=== PATIENT | female | born 1965 | race African-American/Black ===

== ENCOUNTER 2024-10-12 07:10 | Emergency (ER) | payer OTHER ==
[~2024-10-12] VITALS: Ht 177.8 cm; Wt 75.9 kg
[2024-10-12] MEDS: KETOROLAC TROMETH 60MG/2ML VIAL IM ONE (08:13)
--- NOTE | 2024-10-12 08:14 | ED.PDOC ---
Musculoskeletal HPI Comments 59-year-old female patient presents to the clinic for left wrist pain. Patient reports that she was walking dog this morning, when she slipped on the turf and fell landing on the left hand and wrist. Patient has moderate swelling to the radial portion of the wrist. Patient denies taking any medications for pain this morning. Patient has ice pack in place. Patient has decreased range of motion to the wrist due to pain. Cap refill less than 3 seconds. Inflammation and deformity noted to the left wrist. Chief Complaint: Upper Extremity Time Seen by MD: 07:32 Primary Care Provider: RICARDO Reviewed Notes: Nurses Notes, Medications Allergies: Coded Allergies: Tetracycline (Verified Allergy, Unknown, 10/12/24) Home Meds Active Scripts Hydrocodone-Acetaminophen (Hydrocodone Bitartrate/AC 5-325 mg) 1 Tab Tab, 1 TAB PO Q6HPRN PRN for 3 Days, #12 TAB 0 Refills Prov:OLGA LIDIA SHAW [facility] 10/12/24 Ondansetron Odt 4MG Tab (ZOFRAN PO) 4 Mg Tb, 4 MG PO Q8HP PRN for 7 Days, #21 TAB ODT TAB-DISSOLVE IN MOUTH, THEN SWALLOW Prov:OLGA LIDIA SHAW [facility] 10/12/24 Ibuprofen Micronized (Ibuprofen) 600 Mg Tab, 600 MG PO Q6HPRN PRN for 30 Days, #120 TAB 0 Refills Prov:OLGA LIDIA SHAW [facility] 10/12/24 Information Source: Patient Mode of Arrival: Ambulatory Past Medical History PAST MEDICAL HISTORY: Denies Surgical History: Denies all surgeries 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 History Family History Family History: Reviewed,noncontributory to illness Constitutional: denies: chills, diaphoresis, fatigue, fever, malaise, sweats, weakness, others EENTM: denies: blurred vision, double vision, ear bleeding, ear discharge, ear drainage, ear pain, ear ringing, eye pain, eye redness, hearing loss, mouth pain, mouth swelling, nasal discharge, nose bleeding, nose congestion, nose pain, photophobia, tearing, throat pain, throat swelling, voice changes, others Respiratory: denies: cough, hemoptysis, orthopnea, SOB at rest, shortness of breath, SOB with excertion, stridor, wheezing, others Cardiovascular: denies: chest pain, dizzy spells, diaphoresis, Dyspnea on exertion, edema, irregular heart beat, left arm pain, lightheadedness, palpitations, PND, syncope, others Gastrointestinal: denies: abdomen distended, abdominal pain, blood streaked bowels, constipated, diarrhea, dysphagia, difficulty swallowing, hematemesis, melena, nausea, poor appetite, poor fluid intake, rectal bleeding, rectal pain, vomiting, others Genitourinary: denies: abnormal vagina bleeding, burning, dyspareunia, dysuria, flank pain, frequency, hematuria, incontinence, pain, , vagina discharge, urgency, others Neurological: denies: dizziness, fainting, headache, left sided numbness, left sided weakness, numbness, paresthesia, pre-existing deficit, right sided numbness, right sided weakness, seizure, speech problems, tingling, tremors, weakness, others Musculoskeletal: reports: joint swelling (Left wrist) Integumetry: denies: bruises, change in color, change in hair/nails, dryness, laceration, lesions, lumps, rash, wounds, others Allergic/Immunocompromised: denies: Difficulty Healing, Frequent Infections, Hives, Itching, others Hematologic/Lymphatic: denies: anemia, blood clots, easy bleeding, easy bruising, swollen glands, others Endocrine: denies: excessive hunger, excessive sweating, excessive thirst, excessive urination, flushing, intolerance to cold, intolerance to heat, unexplained weight gain, unexplained weight loss, others Psychiatric: denies: anxiety, bipolar disorder, depression, hopeless, panic disorder, schizophrenia, sleepless, suicidal, others All Other Systems: Reviewed and Negative Physical Exam General Appearance: No Apparent Distress, Normal HEENT: Normal ENT Inspection, Pharynx Normal, TMs Normal Neck: Full Range of Motion, Non-Tender, Normal, Normal Inspection Respiratory: Chest Non-Tender, Lungs Clear, No Accessory Muscle Use, No Respiratory Distress, Normal Breath Sounds Cardiovascular: No Edema, No JVD, No Murmur, No Gallop, Normal Peripheral Pulses, Regular Rate/Rhythm Breast Exam: Deferred Gastrointestinal: No Organomegaly, Non Tender, No Pulsatile Mass, Normal Bowel Sounds, Soft Genitalia: Deferred Pelvic: Deferred Rectal: Deferred Extremities: No calf tenderness, Normal capillary refill, Normal inspection, Normal range of motion, Non-tender, No pedal edema Musculoskeletal : Location: Left Extremity Location: Wrist (Swelling to the left wrist near the thumb. Cap refill less than 3 seconds) Apperance: Normal, Deformity (Left wrist), Tenderness: Moderate (left wrist) Neurologic: Alert, refrigerator assembler II-XII nml as Tested, No Motor Deficits, Normal Affect, Normal Mood, No Sensory Deficits Cerebellar Function: Normal Reflexes: Normal Skin: Dry, Normal Color, Warm Lymphatic: No Adenopathy Was a procedure done? Was a procedure done?: Yes Sedation Sedation?: No Informed consent obtained: Yes Reduction Indication: Fracture Sedation: Radial, Ulnar Intra-articular anesthetic shantelle: No Post-reduction x-ray show: Acceptable Alignment Informed consent obtained: Yes Risks/benefits/alt described: Yes Differential Diagnosis EXT Differential Diagnosis: Fracture, Sprain, Contusion, Strain, Arthritis X-Ray, Labs, Meds, VS Vital Signs Date Time Temp Pulse Resp B/P (MAP) Pulse Ox O2 Delivery O2 Flow Rate FiO2 10/12/24 10:41 120 18 123/66 10/12/24 10:11 88 16 142/95 10/12/24 08:45 99.0 88 16 165/90 (115) 100 99.0 10/12/24 08:45 88 16 100 Room Air 10/12/24 07:20 99.3 85 16 177/90 (119) 100 Current Medications Medications (Trade) Dose Ordered Sig/Daysi Route Start Time Stop Time Status Last Admin Ketorolac Tromethamine (Toradol Injection) 60 mg ONCE ONCE IM 10/12/24 08:00 10/12/24 08:01 DC 10/12/24 08:13 Hydromorphone HCl (Dilaudid Injection) 1 mg ONCE ONCE IM 10/12/24 09:45 10/12/24 09:46 DC 10/12/24 10:11 Ondansetron HCl (Zofran Po) 4 mg ONCE ONCE PO 10/12/24 09:45 10/12/24 09:46 DC 10/12/24 09:45 PATIENT: GRIS ACOSTAACCT: [id number]: [id number] : 1965 LOC: ER ROOM / BED: / AGE / SEX: 59 / F ADM STATUS: REG ER SERVICE 0737 ORDERING PHYSICIAN: OLGA LIDIA SHAW PROCEDURE(s): LWRI - L WRIST 3+ VIEW XRAY REASON: R/O FX FALL ORDER NUMBER(s): [id number], ACCESSION NUMBER(s): [id number] CLINICAL INDICATION: R/O FX FALL TECHNIQUE: XY L WRIST 3+ VIEW XRAY Comparison: None FINDINGS/IMPRESSION: Comminuted and displaced d distal radial and ulnar styloid process fractures. ATED BY: PAL SPICER MD DICTATED DATE/TIME: 10/12/24817 SIGNED BY: PAL SPICER MD SIGNED DATE/TIME: 10/12/24817 CC: X-Ray, Labs, Meds, VS Comment Pt left the clinic with splint in place. Pt advised to elevate the wrist as much as possible. Patient advised to take pain medication as prescribed. Patient advised to follow up with ortho tomorrow morning regarding splint and reduction. On re-evaluation patient has symptomatic improvement. Patient is stable for discharge at this time. All test results and diagnostic imaging have been interpreted. All diagnostic findings, discharge care, and education instruction provided to the patient. Follow-up with PCP in 2-3 days Patient verbalized understanding, discharge instructions and agrees to treatment plan Vital signs are stable Patient is ambulatory Patient advised of which symptoms necessitate a return visit to the emergency room. Patient to return emergency room for any new worsening symptoms. Patient is aware that the purpose of this visit is for an acute medical emergency requiring emergent stabilization. Chronic conditions, including malignancies have not been ruled out. Patient is instructed to follow up with PCP as directed for continued care and workup. If unable to arrange follow up, patient is to return to the emergency room for reassessment. Patient was given verbal and written discharge instructions and acknowledges understanding Time of 1ST Reevaluation: 08:13 Reevaluation 1ST: Improved Patient Education/Counseling: Diagnosis, Treatment, Prognosis Family Education/Counseling: Diagnosis, Treatment, Prognosis Departure 1 Departure Time of Disposition: 11:47 Impression: Primary Impression: Left ulnar fracture Qualified Codes: S52.692A - Other fracture of lower end of left ulna, initial encounter for closed fracture Additional Impressions: Left radial fracture Qualified Codes: S52.592A - Other fractures of lower end of left radius, initial encounter for closed fracture Reduced fracture of shafts of both ulna and radius Disposition: 01 HOME / SELF CARE / HOMELESS Condition: Fair e-Prescriptions Hydrocodone-Acetaminophen (Hydrocodone Bitartrate/AC 5-325 mg) 1 Tab Tab 1 TAB PO Q6HPRN PRN for 3 Days, #12 TAB 0 Refills Prov: OLGA LIDIA SHAW [facility] 10/12/24 Ondansetron Odt 4MG Tab (ZOFRAN PO) 4 Mg Tb 4 MG PO Q8HP PRN for 7 Days, #21 TAB ODT TAB-DISSOLVE IN MOUTH, THEN SWALLOW Prov: OLGA LIDIA SHAW [facility] 10/12/24 Ibuprofen Micronized (Ibuprofen) 600 Mg Tab 600 MG PO Q6HPRN PRN for 30 Days, #120 TAB 0 Refills Prov: OLGA LIDIA SHAW [facility] 10/12/24 Discharged With: Self, Relative Critical Care Note Critical Care Time?: No Stability Stability form required: No Heart Score Heart Score: Heart Score Response (Comments) Value History N/A 0 EKG N/A 0 Age N/A 0 Risk Factors N/A 0 Troponin N/A 0 Total 0 OLGA LIDIA SHAW [facility] Oct 12, 2024 08:14
--- NOTE | 2024-10-12 08:20 | DVH ---
CLINICAL INDICATION: R/O FX FALL TECHNIQUE: XY L WRIST 3+ VIEW XRAY Comparison: None FINDINGS/IMPRESSION: Comminuted and displaced d distal radial and ulnar styloid process fractures.
[2024-10-12 08:45] VITALS: TEMP 99; O2SAT 100
[2024-10-12] MEDS: ONDANSETRON ODT 4 MG TAB PO ONE (09:45)
[2024-10-12] MEDS: HYDROmorphone HCL 2 MG/ML VL/or syr IM ONE (10:11)
[2024-10-12 10:41] VITALS: BP 123/66; PULSE 120; RESP 18
--- NOTE | 2024-10-12 11:23 | DVH ---
INDICATION: reduction TECHNIQUE: 4 radiographic views of the left wrist were obtained. COMPARISON: XY L WRIST 3+ VIEW XRAY on DOS: 10/12/24 FINDINGS: Status post reduction of distal radius . Improve anatomic aligment. IMPRESSION: Status post reduction of distal radius . Improve anatomic aligment.
[2024-10-12] MEDS ORDERED: HYDR-4902 PO (11:30)
[2024-10-12] MEDS ORDERED: ZOFR4T PO (11:30)
[2024-10-12] MEDS ORDERED: IBUP1TAB5 PO (11:30)
== END 2024-10-12 12:00 | disposition home or self-care (01) ==
LOC: ER 07:10
DX: S52.592A Other fractures of lower end of left radius, initial encounter for closed fracture (principal); S52.692A Other fracture of lower end of left ulna, initial encounter for closed fracture; Z88.8 Allergy status to other drugs, medicaments and biological substances; Z79.899 Other long term (current) drug therapy; W18.39XA Other fall on same level, initial encounter; Y93.89 Activity, other specified; Y92.89 Other specified places as the place of occurrence of the external cause; Y99.8 Other external cause status
CPT/HCPCS: 25605; 73110; 96372; 99284; J1171; J1885; Q0162

== ENCOUNTER 2024-11-01 10:25 | Inpatient (IN) | payer OTHER ==
[~2024-11-01] VITALS: Ht 177.8 cm; Wt 81.0 kg
[~2024-11-01 10:25] MED LIST: HYDR-4902 PO; IBUP1TAB5 PO
[2024-11-01 11:54] LABS: Eosinophils # (auto) 0 10 ^3/uL (0-0.8); Eosinophils % (auto) 0.7 % (0.0-7.0); Lymphocytes # (auto) 1.3 10 ^3/uL (0.4-5.4); Monocytes # (auto) 0.4 10 ^3/uL (0-1.3)
[2024-11-01 11:56] LABS: Basophils # (auto) 0 10 ^3/uL (0-0.2); Basophils % (auto) 0.7 % (0.0-2.0); Hematocrit 36.4 % (36.0-46.0); Hemoglobin 11.6 g/dL (12.2-16.2); Lymphocytes % (auto) 22.4 % (10.0-50.0); Mean Corpuscular Hemoglobin 20.5 pg (28.0-32.0); Mean Corpuscular Hgb Conc. 31.8 g/dL (32.0-36.0); Mean Corpuscular Volume 64.5 fL (80.0-100.0); Monocytes % (auto) 6.2 % (0.0-12.0); Neutrophils # (auto) 4.1 10 ^3/uL (1.6-8.6); Nucleated Red Blood Cells % 0.1 %; Platelet Count (auto) 252 10^3/uL (140-450); Red Blood Cells 5.65 10^6/uL (4.0-5.20); Red Cell Distribution Width 16.8 % (11.8-14.3); White Blood Cell 5.8 10^3/uL (4.4-10.8)
--- NOTE | 2024-11-01 11:58 | ED.PDOC ---
Musculoskeletal HPI Comments 59 year old female presents to the ED with chief complaint of pre-op clearance for wrist fracture. Patient reports that she had fractured her left wrist in two different places, following up with orthopedist Dr. King for treatment. Patient relays that she was advised to come into the ED for pre-op and to be admitted for surgery that is to take place tomorrow. Patient denies any symptoms at this time. Chief Complaint: Upper Extremity Time Seen by MD: 11:54 Primary Care Provider: RICARDO [place] Notes: Nurses Notes, Medications, Allergies Allergies: Coded Allergies: Tetracycline (Verified Allergy, Unknown, 10/12/24) Home Meds Active Scripts Hydrocodone-Acetaminophen (Hydrocodone Bitartrate/AC 5-325 mg) 1 Tab Tab, 1 TAB PO Q6HPRN PRN for 3 Days, #12 TAB 0 Refills Prov:OLGA LIDIA SHAW [facility] 10/12/24 Ibuprofen Micronized (Ibuprofen) 600 Mg Tab, 600 MG PO Q6HPRN PRN for 30 Days, #120 TAB 0 Refills Prov:COLINOLGA LIDIA [facility] 10/12/24 Information Source: Patient Mode of Arrival: Ambulatory Location: Left Extremity Location: Wrist Timing: Days Prehospital treatment: None Severity: Moderate Able to Move Extremity: Yes Bear Weight: Fully Pain: Mild Past Medical History PAST MEDICAL HISTORY: HTN Surgical History: Denies all surgeries 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 Family History Family History: Reviewed,noncontributory to illness Social History Smoker: Non-Smoker Alcohol: Denies ETOH Use Drugs: Denies Drug Use Lives In: Home Constitutional: denies: chills, diaphoresis, fatigue, fever, malaise, sweats, weakness, others EENTM: denies: blurred vision, double vision, ear bleeding, ear discharge, ear drainage, ear pain, ear ringing, eye pain, eye redness, hearing loss, mouth pain, mouth swelling, nasal discharge, nose bleeding, nose congestion, nose pain, photophobia, tearing, throat pain, throat swelling, voice changes, others Respiratory: denies: cough, hemoptysis, orthopnea, SOB at rest, shortness of breath, SOB with excertion, stridor, wheezing, others Cardiovascular: denies: chest pain, dizzy spells, diaphoresis, Dyspnea on exertion, edema, irregular heart beat, left arm pain, lightheadedness, palpitations, PND, syncope, others Gastrointestinal: denies: abdomen distended, abdominal pain, blood streaked bowels, constipated, diarrhea, dysphagia, difficulty swallowing, hematemesis, melena, nausea, poor appetite, poor fluid intake, rectal bleeding, rectal pain, vomiting, others Genitourinary: denies: abnormal vagina bleeding, burning, dyspareunia, dysuria, flank pain, frequency, hematuria, incontinence, pain, , vagina discharge, urgency, others Neurological: denies: dizziness, fainting, headache, left sided numbness, left sided weakness, numbness, paresthesia, pre-existing deficit, right sided numbness, right sided weakness, seizure, speech problems, tingling, tremors, weakness, others Musculoskeletal: reports: others (Left wrist fracture); denies: back pain, gout, joint pain, joint swelling, muscle pain, muscle stiffness, neck pain Integumetry: denies: bruises, change in color, change in hair/nails, dryness, laceration, lesions, lumps, rash, wounds, others Allergic/Immunocompromised: denies: Difficulty Healing, Frequent Infections, Hives, Itching, others Hematologic/Lymphatic: denies: anemia, blood clots, easy bleeding, easy bruising, swollen glands, others Endocrine: denies: excessive hunger, excessive sweating, excessive thirst, excessive urination, flushing, intolerance to cold, intolerance to heat, unexplained weight gain, unexplained weight loss, others Psychiatric: denies: anxiety, bipolar disorder, depression, hopeless, panic disorder, schizophrenia, sleepless, suicidal, others All Other Systems: Reviewed and Negative Physical Exam General Appearance: No Apparent Distress HEENT: Normal ENT Inspection Neck: Full Range of Motion, Normal Inspection Respiratory: Lungs Clear, No Accessory Muscle Use, No Respiratory Distress, Normal Breath Sounds Cardiovascular: No JVD, Regular Rate/Rhythm Breast Exam: Deferred Gastrointestinal: Non Tender, Soft Genitalia: Deferred Pelvic: Deferred Rectal: Deferred Extremities: No pedal edema, Other (Left upper extremity short orthopedic splint in place. Left upper extremity appears neurovascularly intact.) Neurologic: Alert, Normal Affect, Normal Mood, Other (Ambulatory without difficulty. No gross focal deficit.) Cerebellar Function: NOT DONE Reflexes: NOT DONE Skin: Dry, Normal Color, Warm Lymphatic: NOT DONE Was a procedure done? Was a procedure done?: No Differential Diagnosis EXT Differential Diagnosis: Fracture Other Differential Diagnosis Electrolyte imbalance, cardiac disease, renal disease, among others X-Ray, Labs, Meds, VS Vital Signs Date Time Temp Pulse Resp B/P (MAP) Pulse Ox O2 Delivery O2 Flow Rate FiO2 11/01/24 13:52 98.1 78 16 154/84 (107) 100 98.1 11/01/24 13:52 85 16 100 Room Air* 0 21 11/01/24 10:52 97.5 91 16 138/80 (99) 99 Lab Test 11/01/24 11:40 11/01/24 11:11 Range/Units White Blood Count 5.8 4.4-10.8 10^3/uL Red Blood Count 5.65 H 4.0-5.20 10^6/uL Hemoglobin 11.6 L 12.2-16.2 g/dL Hematocrit 36.4 36.0-46.0 % Mean Corpuscular Volume 64.5 L 80.0-100.0 fL Mean Corpuscular Hemoglobin 20.5 L 28.0-32.0 pg Mean Corpuscular Hemoglobin Concent 31.8 L 32.0-36.0 g/dL Red Cell Distribution Width 16.8 H 11.8-14.3 % Platelet Count 252 140-450 10^3/uL Mean Platelet Volume 8.4 6.9-10.8 fL Neutrophils (%) (Auto) 70.0 37.0-80.0 % Lymphocytes (%) (Auto) 22.4 10.0-50.0 % Monocytes (%) (Auto) 6.2 0.0-12.0 % Eosinophils (%) (Auto) 0.7 0.0-7.0 % Basophils (%) (Auto) 0.7 0.0-2.0 % Neutrophils # (Auto) 4.1 1.6-8.6 10 ^3/uL Lymphocytes # (Auto) 1.3 0.4-5.4 10 ^3/uL Monocytes # (Auto) 0.4 0-1.3 10 ^3/uL Eosinophils # (Auto) 0 0-0.8 10 ^3/uL Basophils # (Auto) 0 0-0.2 10 ^3/uL Nucleated Red Blood Cells 0.1 % Platelet Estimate Adequate Hypochromasia (manual) Moderate Anisocytosis (manual) Slight Microcytosis Slight Schistocytes Few Prothrombin Time 11.1 9.3-11.8 sec Prothrombin Time INR 1.05 0.9-1.15 Activated Partial Thromboplast Time 28.8 24.5-34.5 SEC Sodium Level 141 136-145 mmol/L Potassium Level 3.4 L 3.5-5.1 mmol/L Chloride Level 106 98-107 mmol/L Carbon Dioxide Level 31 20-31 mmol/L Anion Gap 4 L 5-15 Blood Urea Nitrogen 5 L 9-23 mg/dL Creatinine 0.68 0.550-1.02 mg/dL Glomerular Filtration Rate Calc 99 >90 mL/min BUN/Creatinine Ratio 7.4 L 10.0-20.0 Serum Glucose 89 74-106 mg/dL Calcium Level 10.4 8.7-10.4 mg/dL Total Bilirubin 1.1 H 0.2-1.0 mg/dL Aspartate Amino Transferase (AST) 19 13-40 U/L Alanine Aminotransferase (ALT) 15 7-40 U/L Alkaline Phosphatase 89 46-116 U/L Total Protein 7.6 5.7-8.2 g/dL Albumin 4.5 3.2-4.8 g/dL Urine Color Light-yellow Yellow Urine Clarity Clear Clear Urine pH 6.0 5.0-9.0 Urine Specific [place] 1.003 1.001-1.035 Urine Protein Negative Negative Urine Ketones Negative Negative Urine Blood Negative Negative /uL Urine Nitrite Negative Negative Urine Bilirubin Negative Negative Urine Urobilinogen Normal Negative mg/dL Urine Leukocyte Esterase Negative Negative /uL Urine RBC <1 0 - 4 /hpf Urine WBC 1 0 - 5 /hpf Urine Squamous Epithelial Cells Few <5 /hpf Urine Bacteria None seen None Seen /hpf Urine Glucose Normal Normal mg/dL Current Medications Medications (Trade) Dose Ordered Sig/Daysi Route Start Time Stop Time Status Last Admin Potassium Chloride (Klor-Con Tablet) 40 meq ONCE ONCE PO 11/01/24 13:00 11/01/24 13:32 DC 11/01/24 13:57 Chest XR: FINDINGS: Lines and Tubes: None Lungs: No focal consolidation. Pleura: No effusion. No pneumothorax. Cardiomediastinal contours: Cardiac silhouette near upper limit of normal in size. Bones: No acute osseous abnormality. IMPRESSION: 1. No radiographic evidence of acute cardiopulmonary disease. X-Ray, Labs, Meds, VS Comment 59-year-old female with a history of hypertension presenting for preop clearance for orthopedic surgery to repair left upper extremity fractures Vitals unremarkable Exam remarkable for left upper extremity short Velcro splint in place. Left upper extremity appears neurovascularly intact. Rhythm strip independently interpreted by me: Sinus rhythm, rate 91, no ectopy. Chest x-ray unremarkable CBC unremarkable, CMP remarkable for potassium 3.4, coag panel and UA unremarkable Patient treated with the following in the ED: KCl 40 mEq p.o. Patient resting comfortably on re-evaluation. Plan is to admit the patient for ongoing preop clearance for surgery tomorrow. Images Reviewed?: Images reviewed and evaluated by me Time of 1ST Reevaluation: 12:54 Reevaluation 1ST: Unchanged Patient Education/Counseling: Diagnosis, Treatment Family Education/Counseling: No Family Present Departure 1 Departure Time of Disposition: 14:58 Impression: Primary Impression: Preoperative clearance Disposition: ADMITTED INPATIENT Admit to: Med Surg Condition: Stable Critical Care Note Critical Care Time?: No Stability Stability form required: No Heart Score Heart Score: Heart Score Response (Comments) Value History N/A 0 EKG N/A 0 Age N/A 0 Risk Factors N/A 0 Troponin N/A 0 Total 0 I personally scribed for LOURDES JEWELL MD ([email or web address]) on 11/01/24 at 11:58. Electronically submitted by Sidney Wilson ([email or web address]). I personally scribed for LOURDES JEWELL MD ([email or web address]) on 11/01/24 at 12:43. Electronically submitted by Sidney Wilson ([email or web address]). LOURDES JEWELL MD Nov 01, 2024 11:58
--- NOTE | 2024-11-01 12:07 | DVH ---
CHEST RADIOGRAPH Indication: pre-op Technique: Single frontal view of the chest was obtained Comparison: None FINDINGS: Lines and Tubes: None Lungs: No focal consolidation. Pleura: No effusion. No pneumothorax. Cardiomediastinal contours: Cardiac silhouette near upper limit of normal in size. Bones: No acute osseous abnormality. IMPRESSION: 1. No radiographic evidence of acute cardiopulmonary disease. HS:Y
[2024-11-01 12:12] LABS: INR 1.05 (0.9-1.15); Partial Thromboplastin Time 28.8 SEC (24.5-34.5); Prothrombin Time 11.1 sec (9.3-11.8)
[2024-11-01 12:13] LABS: Alanine Aminotransferase 15 U/L (7-40); Albumin 4.5 g/dL (3.2-4.8); Alkaline Phosphatase 89 U/L (46-116); Anion Gap 4 (5-15); Aspartate Aminotransferase 19 U/L (13-40); BUN/Creatinine Ratio 7.4 (10.0-20.0); Blood Urea Nitrogen 5 mg/dL (9-23); Calcium 10.4 mg/dL (8.7-10.4); Carbon Dioxide 31 mmol/L (20-31); Chloride 106 mmol/L (98-107); Glucose 89 mg/dL (74-106); Potassium 3.4 mmol/L (3.5-5.1); Sodium 141 mmol/L (136-145)
[2024-11-01 12:14] LABS: Bilirubin, Total 1.1 mg/dL (0.2-1.0); Total Protein 7.6 g/dL (5.7-8.2)
[2024-11-01 12:19] LABS: Urine Bacteria None Seen /hpf (None Seen)
[2024-11-01 12:22] LABS: Anisocytosis Slight; Hypochromia Moderate; Platelet Estimate Adequate
[2024-11-01 12:30] LABS: Urine Blood Negative /uL (Negative); Urine Clarity Clear (Clear); Urine Color Light-Yellow (Yellow); Urine Protein, UAD Negative (Negative); Urine Specific Gravity 1.003 (1.001-1.035); Urine Urobilinogen Normal (Negative); Urine WBC 1 /hpf (0 - 5)
[2024-11-01 13:52] VITALS: PULSE 85; RESP 16; O2SAT 100
[2024-11-01] MEDS: POTASSIUM CHL 20 Meq TABLET PO ONE (13:57)
--- NOTE | 2024-11-01 14:56 | DVHHP2 ---
History of Present Illness Reason for Visit: fracture History of Present Illness 59-year-old with a past medical history of hypertension comes to the ED for evaluation of pain in the wrist patient had a fall with a wrist fracture and was evaluated by Orthopedics outpatient patient was recommended for inpatient evaluation management and care in order to have surgical correction done in the morning patient was evaluated in the ED had basic labs for preop evaluation patient will be admitted for further evaluation and management and preop orthopedic repair Cardiovascular: HTN Review of Systems Constitutional: No: Fever, Chills, Sweats, Weakness, Malaise, Other Eyes: No: Pain, Vision change, Conjunctivae inflammation, Eyelid inflammation, Other, Redness ENT: No: Ear pain, Ear discharge, Nose pain, Nose discharge, Nose congestion, Mouth pain, Mouth swelling, Throat pain, Throat swelling, Other Respiratory: No: Cough, Dry, Shortness of breath, SOB with excertion, Wheezing, Hemoptysis, Pleuritic Pain, Sputum, Wheezing, Other Cardiovascular: No: Chest Pain, Palpitations, Orthopnea, Paroxysmal Noc. Dyspnea, Edema, Lt Headedness, Other Gastrointestinal: No: Nausea, Vomiting, Abdominal Pain, Diarrhea, Constipation, Melena, Hematochezia, Other Genitourinary: No Dysuria, No Frequency, No Incontinence, No Hematuria, No Retention, No Other Musculoskeletal: arm pain; No: other, neck pain, shoulder pain, back pain, hand pain, leg pain, foot pain Skin: No: Rash, Lesions, Jaundice, Bruising, Other Neurological: No: Weakness, Numbness, Incoordination, Change in speech, Confusion, Seizures, Other Allergies: Coded Allergies: Tetracycline (Verified Allergy, Unknown, 10/12/24) Exam Vital Signs Vital Signs Date Time Temp Pulse Resp B/P (MAP) Pulse Ox O2 Delivery O2 Flow Rate FiO2 11/01/24 13:52 98.1 78 16 154/84 (107) 100 98.1 11/01/24 13:52 Room Air* 0 21 General Appearance: Alert, Oriented X3, Cooperative, moderate distress HEENT: Atraumatic, PERRLA, EOMI Respiratory: Clear to auscultation, Normal air movement Cardiovascular: Regular rate, Normal S1, Normal S2 Abdominal: Normal bowel sounds, Soft, No tenderness Extremities: No clubbing, No cyanosis, No edema Skin: No rashes, No breakdown Neuro: Normal gait, Normal speech Psych/Mental Status: Mood NL Labs/Xrays Labs Test 11/01/24 11:40 11/01/24 11:11 Range/Units White Blood Count 5.8 4.4-10.8 10^3/uL Red Blood Count 5.65 H 4.0-5.20 10^6/uL Hemoglobin 11.6 L 12.2-16.2 g/dL Hematocrit 36.4 36.0-46.0 % Mean Corpuscular Volume 64.5 L 80.0-100.0 fL Mean Corpuscular Hemoglobin 20.5 L 28.0-32.0 pg Mean Corpuscular Hemoglobin Concent 31.8 L 32.0-36.0 g/dL Red Cell Distribution Width 16.8 H 11.8-14.3 % Platelet Count 252 140-450 10^3/uL Mean Platelet Volume 8.4 6.9-10.8 fL Neutrophils (%) (Auto) 70.0 37.0-80.0 % Lymphocytes (%) (Auto) 22.4 10.0-50.0 % Monocytes (%) (Auto) 6.2 0.0-12.0 % Eosinophils (%) (Auto) 0.7 0.0-7.0 % Basophils (%) (Auto) 0.7 0.0-2.0 % Neutrophils # (Auto) 4.1 1.6-8.6 10 ^3/uL Lymphocytes # (Auto) 1.3 0.4-5.4 10 ^3/uL Monocytes # (Auto) 0.4 0-1.3 10 ^3/uL Eosinophils # (Auto) 0 0-0.8 10 ^3/uL Basophils # (Auto) 0 0-0.2 10 ^3/uL Nucleated Red Blood Cells 0.1 % Platelet Estimate Adequate Hypochromasia (manual) Moderate Anisocytosis (manual) Slight Microcytosis Slight Schistocytes Few Prothrombin Time 11.1 9.3-11.8 sec Prothrombin Time INR 1.05 0.9-1.15 Activated Partial Thromboplast Time 28.8 24.5-34.5 SEC Sodium Level 141 136-145 mmol/L Potassium Level 3.4 L 3.5-5.1 mmol/L Chloride Level 106 98-107 mmol/L Carbon Dioxide Level 31 20-31 mmol/L Anion Gap 4 L 5-15 Blood Urea Nitrogen 5 L 9-23 mg/dL Creatinine 0.68 0.550-1.02 mg/dL Glomerular Filtration Rate Calc 99 >90 mL/min BUN/Creatinine Ratio 7.4 L 10.0-20.0 Serum Glucose 89 74-106 mg/dL Calcium Level 10.4 8.7-10.4 mg/dL Total Bilirubin 1.1 H 0.2-1.0 mg/dL Aspartate Amino Transferase (AST) 19 13-40 U/L Alanine Aminotransferase (ALT) 15 7-40 U/L Alkaline Phosphatase 89 46-116 U/L Total Protein 7.6 5.7-8.2 g/dL Albumin 4.5 3.2-4.8 g/dL Urine Color Light-yellow Yellow Urine Clarity Clear Clear Urine pH 6.0 5.0-9.0 Urine Specific [place] 1.003 1.001-1.035 Urine Protein Negative Negative Urine Ketones Negative Negative Urine Blood Negative Negative /uL Urine Nitrite Negative Negative Urine Bilirubin Negative Negative Urine Urobilinogen Normal Negative mg/dL Urine Leukocyte Esterase Negative Negative /uL Urine RBC <1 0 - 4 /hpf Urine WBC 1 0 - 5 /hpf Urine Squamous Epithelial Cells Few <5 /hpf Urine Bacteria None seen None Seen /hpf Urine Glucose Normal Normal mg/dL Assessment/Plan Assessment/Plan Admit to [facility] Wrist fracture Plan for inpatient preop clearance Plan for patient to have orthopedic repair with Dr. Bo PLamarrLamarnLamar management for pain as needed IV hydration NPO after midnight Repeat a.m. labs for preop procedure Cardio consulted in the ED for preop cardiac clearance History of hypertension we will continue with patient's home medications Plan discussed with: Patient Problem List: (1) Left ulnar fracture (2) Left radial fracture (3) Reduced fracture of shafts of both ulna and radius Date of Service: Nov 01, 2024 Billing Provider: CELIO RAMESH MD Common Visit Codes: [id number] INP/OBS CARE (HIGH) CELIO RAMESH MD Nov 01, 2024 14:56
[2024-11-01] MEDS ORDERED: LORazepam 0.5 MG TAB PO PRN (15:00)
[2024-11-01] MEDS ORDERED: MORPHINE SULFATE INJ 2 MG/ml SYRG IV PRN (15:00)
[2024-11-01] MEDS ORDERED: MAALOX PLUS or MAALOX 30 ML PO PRN (15:00)
[2024-11-01] MEDS ORDERED: DOCUSATE SOD 100 MG CAP PO PRN (15:00)
[2024-11-01] MEDS ORDERED: TEMAZEPAM 15 MG CAP PO PRN (15:00)
[2024-11-01] MEDS: SODIUM CHLORIDE 0.9% 1,000 ML IV SCH (18:01)
[2024-11-01 18:03] VITALS: PULSE 79; RESP 16; O2SAT 99
[2024-11-01 20:30] VITALS: BP 143/70; PULSE 72; RESP 20; TEMP 98.2; O2SAT 98
[2024-11-02] VITALS (8 sets, daily range): BP systolic 138–165; BP diastolic 60–93; PULSE 68–110; RESP 14–20; TEMP 97.3–98.2; O2SAT 98–100
[2024-11-02 05:20] LABS: Basophils # (auto) 0 10 ^3/uL (0-0.2); Basophils % (auto) 0.7 % (0.0-2.0); Eosinophils # (auto) 0.1 10 ^3/uL (0-0.8); Eosinophils % (auto) 2.8 % (0.0-7.0); Hematocrit 35.9 % (36.0-46.0); Hemoglobin 11.5 g/dL (12.2-16.2); Lymphocytes # (auto) 2.2 10 ^3/uL (0.4-5.4); Lymphocytes % (auto) 43.7 % (10.0-50.0); Mean Corpuscular Hemoglobin 20.5 pg (28.0-32.0); Mean Corpuscular Hgb Conc. 32.1 g/dL (32.0-36.0); Mean Corpuscular Volume 63.9 fL (80.0-100.0); Monocytes # (auto) 0.4 10 ^3/uL (0-1.3); Monocytes % (auto) 7.9 % (0.0-12.0); Neutrophils # (auto) 2.2 10 ^3/uL (1.6-8.6); Neutrophils % (auto) 44.9 % (37.0-80.0); Nucleated Red Blood Cells % 0.1 %; Platelet Count (auto) 222 10^3/uL (140-450); Red Blood Cells 5.62 10^6/uL (4.0-5.20); Red Cell Distribution Width 17.5 % (11.8-14.3); White Blood Cell 4.9 10^3/uL (4.4-10.8)
[2024-11-02 05:30] LABS: Anion Gap 6 (5-15); Carbon Dioxide 28 mmol/L (20-31); Potassium 3.8 mmol/L (3.5-5.1); Sodium 142 mmol/L (136-145)
[2024-11-02 05:31] LABS: Calcium 10.1 mg/dL (8.7-10.4)
[2024-11-02 05:36] LABS: BUN/Creatinine Ratio 10.8 (10.0-20.0); Glucose 91 mg/dL (74-106)
[2024-11-02 05:49] LABS: Blood Urea Nitrogen 7 mg/dL (9-23); Chloride 108 mmol/L (98-107)
[2024-11-02] MEDS: LIDOCAINE 1%-Mpf/Epinephrine 1:200,000 30ml VIAL ONE (07:48)
[2024-11-02] MEDS ORDERED: MIDAZOLAM HCL 2MG/2ML 2ml VIAL (1mg/ml) ONE (08:00)
[2024-11-02] MEDS ORDERED: MEPERIDINE HCL (50 MG/ML) 1 ML VIAL ONE (08:00)
[2024-11-02] MEDS ORDERED: fentaNYL CITRATE 100 MCG/2 ML VL ONE (08:00)
[2024-11-02] MEDS: ceFAZolin 2 GM/D5W100ml 100 ML IV ONE (08:37)
--- NOTE | 2024-11-02 08:41 | DVHHP2 ---
History Allergies: Coded Allergies: Tetracycline (Verified Allergy, Unknown, 10/12/24) Chief Complaint: ^!F, left wrist pain, deformity s/p mechanical fall roughly 3 wks ago, pit not recall exact date, mechanism , trip over dog, pulled by dog, no LOC, no hit head, no AMS splinted pending surgery, very active patient Present Illness(Onset/Duration Left distal radius fracture, 3 wks ago, in active 59F Past Surgical History none declared Medications none Physical Exam Skin intact Chest and Lungs CTA B Heart RRR neg MRG Abdomen NBS, ND NT Extremities left wrist, skin intact, NVI, moderatre swelling, ROM not assesed due to fracture Vital Signs Vital Signs Date Time Temp Pulse Resp B/P (MAP) Pulse Ox O2 Delivery O2 Flow Rate FiO2 11/02/24 07:57 98.2 84 20 165/88 (113) 98 98.2 11/01/24 18:03 Room Air* 0 21 Impressions/Description Left distal radius fracture Plan clearance by anesthsiolgy after EKG surgery, ORIF left distal radius fracture MARRY HINES MD Nov 02, 2024 08:41
[2024-11-02] MEDS ORDERED: PROPOFOL 10 MG/ML 20 ML IV ONE (09:10)
[2024-11-02] MEDS ORDERED: ONDANSETRON HCL 4 MG/2 ML VIAL ONE (09:11)
--- NOTE | 2024-11-02 10:04 | DVHOP2 ---
Operative Report - 2 Report Details Date: 11/02/24 Preop Diagnosis: left distal radius fracture Postop Diagnosis: same Surgeon: Armond Hines MD Claims Representative: none Anesthesiologist: Dr Moy Anesthesia: General Drains: none Implant: Left distal radius volar plate Consent: The patient was informed of the risks and benefits of the procedure. These include but are not limited to complications of anesthesia, postoperative infection, incomplete relief of symptoms, recurrence of symptoms, damage to blood vessels, nerves and tendons, deep venous thrombosis, pulmonary embolism and possible need for repeat surgery in the future. Complications: none Estimated Blood Loss: 25 cc Fluids: 500 cc crystalloid Findings: shortening and dorsal displacement of distal radius fracture Indications for Surgery: very active 59F with significantly displaced distal radius fracture and expected limitation of function without ifxation Name of Procedure Performed Open reduction internal fixation of left distal radius fracture Procedure Details Procedure Details: Patient brought into OR, recieved ancef 2 g IVPB pre operatively non sterile tourniquet left arm, sterilie prep and darpe left UE, timeout performed, confiramtion lef tside correct side , ORIF correct procedure after review of surgical consent, H and P, my signautre on left arm. Exsanguination of arm, tourniquet elevated to 250 mm, totoal time 25min longitudinal incision volar wrist over FCR, daniel through skin, deep fascia divided with mets, blunt dissection to pronator quadratus, needle bovy cautery and elevator to raise the proantor quadratus and expose the distal radius, fracture short and dorsall displaced, osteotome placed in fracture site and levered to restroe length , dorsovolar angle, radial inclination, pinning with 3 k wires, volar plate application after placement of cancellous bone in the fracture gap, c arm fluoro confirmed good alignment of fracture and position of hardware. tourniquet let down, excellent hemostasis, irrigation, closure with 2.0 vicryl, sunni, fluffs, single surgar tong splint in supination. Specimen: none Condition Stable Disposition ARMOND HINES MD Nov 02, 2024 10:04
--- NOTE | 2024-11-02 10:41 | DVHPN2 ---
Progress Note Date Seen: Nov 02, 2024 Medical Necessity Reason Pt with a Central, PICC or Fol: No Subjective Patient reports: No new complaints Review of Systems: HEENT:Normal, CVS:Normal, RESPIRATORY:Normal, GI:Normal, :Normal, MSK:Normal, NEURO:Normal Objective vital signs Vital Sign Date Time Temp Pulse Resp B/P (MAP) Pulse Ox O2 Delivery O2 Flow Rate FiO2 11/02/24 09:50 Room Air 0 100 11/02/24 09:50 100 11/02/24 07:57 98.2 84 20 165/88 (113) 98.2 Total Intake and Output 11/01/24 11/01/24 11/02/24 15:00 23:00 07:00 Intake Total 0 ml Balance 0 ml medications Current Medications Medications Dose Ordered Sig/Daysi Route Start Time Stop Time Status Last Admin Dose Admin Acetaminophen/ Hydrocodone Bitart 1 tab Q6HPRN PRN PO 11/01/24 15:00 Sodium Chloride 1,000 ml @ 60 mls/hr [id number] IV 11/01/24 15:00 11/01/24 18:01 60 MLS/HR Lorazepam 0.5 mg Q6HP PRN PO 11/01/24 15:00 Al Hydrox/Mg Hydrox/Simethicone 30 ml Q6HP PRN PO 11/01/24 15:00 Docusate Sodium 100 mg BIDPRN PRN PO 11/01/24 15:00 Acetaminophen 650 mg Q6HP PRN PO 11/01/24 15:00 Temazepam 15 mg QHSP PRN PO 11/01/24 15:00 Acetaminophen/ Hydrocodone Bitart 1 tab Q4HP PRN PO 11/01/24 15:00 Ondansetron HCl 4 mg Q4HP PRN IV 11/01/24 15:00 Morphine Sulfate 2 mg Q4HPRN PRN IV 11/01/24 15:00 Potassium Chloride/Dextrose/ Sod Cl 1,000 ml @ 150 mls/hr Q6H40M IV 11/02/24 10:15 UNV Cefazolin Sodium 50 ml @ 50 mls/hr Q8HR IV 11/02/24 14:00 11/02/24 22:59 UNV Examination: GENERAL:Normal, HEENT:Normal, NECK:Normal, LUNGS:Normal, CVS:Normal, ABDOMEN:Normal, MSK:Normal, MSK:Abnormal (LEFT WRIST DRESSING), SKIN:Normal, NEURO:Normal, :Normal laboratory and microbiology Laboratory Tests 11/02/24 04:36 Test 11/02/24 04:36 Range/Units Serum Glucose 91 74-106 mg/dL Problem List/Assessment/Plan Problem List/Assessment/Plan #1 left wrist fracture s/p surgery: pain meds #2 htn ?urgency: adjust meds advance care planning- full code- time spent 19 mins Plan discussed with: Patient My Orders My Orders Orders - JULIO RUSSO MD Procedure Category Date Status Time Hydralazine Injection PHA 11/02/24 Verified (Apresoline Inject 10:45 Hydralazine Injection PHA 11/02/24 Verified (Apresoline Inject 10:45 2 Gm Sodium Diet DIET 11/02/24 Verified Lunch Basic Metabolic Panel LAB 11/03/24 Verified 06:00 Complete Blood Count LAB 11/03/24 Verified 06:00 Date of Service: Nov 02, 2024 Billing Provider: JULIO RUSSO MD Common Visit Codes: [id number] INP/OBS CARE(HIGH) Secondary Visit Codes: [id number] CARE PLAN 30 MINUTES JULIO RUSSO MD Nov 02, 2024 10:41
[2024-11-02] MEDS ORDERED: hydrALAZINE HCL 20 MG/ML VL IV PRN (10:45)
[2024-11-02] MEDS: hydrALAZINE HCL 20 MG/ML VL IV ONE ×2 (10:47→12:17)
[2024-11-02] MEDS: hydrALAZINE HCL 20 MG/ML VL ONE (10:59)
--- NOTE | 2024-11-02 12:04 | DVH ---
C-ARM FLUOROSCOPY: PROCEDURE: Left wrist ORIF FLUOROSCOPY TIME: 11.7 seconds DAP: 0.21 mgy FINDINGS: Spot intraoperative C arm radiographs demonstrating left wrist ORIF. IMPRESSION: Please refer to surgical report for detailed findings.
[2024-11-02] MEDS: ceFAZolin 1GM/50ML 50 ML IV SCH (15:10)
[2024-11-02] MEDS: ONDANSETRON HCL 4 MG/2 ML VIAL IV PRN (15:23)
[2024-11-02] MEDS: ACETAMINOPHEN 325 MG TAB PO PRN (15:29)
[2024-11-02] MEDS: HYDROcodone-ACET 5/325MG TAB PO PRN (17:00)
[2024-11-02] MEDS: D5W/SOD CHL 0.45%/KCL 20MEQ 1,000 ML IV SCH (17:00)
[2024-11-02] MEDS ORDERED: DexAMETHasone SOD PHOS 10MG/1ML VIAL INJ IV ONE (17:54)
[2024-11-03 01:00] VITALS: BP 144/70; PULSE 99; RESP 19; TEMP 98.7; O2SAT 99
[2024-11-03 05:00] VITALS: BP 150/78; PULSE 99; RESP 19; TEMP 98.5; O2SAT 99
[2024-11-03 06:48] LABS: Basophils # (auto) 0.1 10 ^3/uL (0-0.2); Basophils % (auto) 0.6 % (0.0-2.0); Eosinophils # (auto) 0 10 ^3/uL (0-0.8); Monocytes # (auto) 0.8 10 ^3/uL (0-1.3); Nucleated Red Blood Cells % 0.1 %; White Blood Cell 10.8 10^3/uL (4.4-10.8)
[2024-11-03 06:54] LABS: Eosinophils % (auto) 0.1 % (0.0-7.0); Hematocrit 36.7 % (36.0-46.0); Lymphocytes # (auto) 1.6 10 ^3/uL (0.4-5.4); Lymphocytes % (auto) 15.3 % (10.0-50.0); Mean Corpuscular Hgb Conc. 32.6 g/dL (32.0-36.0); Mean Corpuscular Volume 64.3 fL (80.0-100.0); Monocytes % (auto) 7.3 % (0.0-12.0); Neutrophils # (auto) 8.3 10 ^3/uL (1.6-8.6); Neutrophils % (auto) 76.7 % (37.0-80.0); Platelet Count (auto) 246 10^3/uL (140-450); Red Blood Cells 5.72 10^6/uL (4.0-5.20); Red Cell Distribution Width 17.6 % (11.8-14.3)
[2024-11-03 06:56] LABS: Chloride 104 mmol/L (98-107); Sodium 140 mmol/L (136-145)
[2024-11-03 06:57] LABS: Anion Gap 10 (5-15); Carbon Dioxide 26 mmol/L (20-31)
[2024-11-03 07:02] LABS: Blood Urea Nitrogen 7 mg/dL (9-23); Glucose 103 mg/dL (74-106)
[2024-11-03 07:32] LABS: Hypochromia Slight; Platelet Estimate Adequate
[2024-11-03 08:00] VITALS: PULSE 98; RESP 20; O2SAT 99
[2024-11-03 08:46] VITALS: BP 146/75; PULSE 98; RESP 20; TEMP 97.7; O2SAT 99
[2024-11-03] MEDS: HYDROcodone-ACET 5/325MG TAB PO PRN (11:23)
[2024-11-03 13:00] VITALS: BP 162/89; PULSE 101; RESP 20; TEMP 98; O2SAT 98
[2024-11-03] MEDS ORDERED: HYDR-4072 PO (15:10)
--- NOTE | 2024-11-03 15:10 | DVHDS2 ---
Discharge Summary Date of Admission Nov 01, 2024 at 14:59 Date of Discharge: Nov 03, 2024 Labs/Diagnostic Data: Laboratory Results Test 11/03/24 06:02 11/01/24 11:40 11/01/24 11:11 White Blood Count 10.8 10^3/uL (4.4-10.8) Red Blood Count 5.72 10^6/uL (4.0-5.20) Hemoglobin 12.0 g/dL (12.2-16.2) Hematocrit 36.7 % (36.0-46.0) Mean Corpuscular Volume 64.3 fL (80.0-100.0) Mean Corpuscular Hemoglobin 21.0 pg (28.0-32.0) Mean Corpuscular Hemoglobin Concent 32.6 g/dL (32.0-36.0) Red Cell Distribution Width 17.6 % (11.8-14.3) Platelet Count 246 10^3/uL (140-450) Mean Platelet Volume 9.6 fL (6.9-10.8) Neutrophils (%) (Auto) 76.7 % (37.0-80.0) Lymphocytes (%) (Auto) 15.3 % (10.0-50.0) Monocytes (%) (Auto) 7.3 % (0.0-12.0) Eosinophils (%) (Auto) 0.1 % (0.0-7.0) Basophils (%) (Auto) 0.6 % (0.0-2.0) Neutrophils # (Auto) 8.3 10 ^3/uL (1.6-8.6) Lymphocytes # (Auto) 1.6 10 ^3/uL (0.4-5.4) Monocytes # (Auto) 0.8 10 ^3/uL (0-1.3) Eosinophils # (Auto) 0 10 ^3/uL (0-0.8) Basophils # (Auto) 0.1 10 ^3/uL (0-0.2) Nucleated Red Blood Cells 0.1 % Platelet Estimate Adequate Hypochromasia (manual) Slight Microcytosis Slight Sodium Level 140 mmol/L (136-145) Potassium Level 4.0 mmol/L (3.5-5.1) Chloride Level 104 mmol/L (98-107) Carbon Dioxide Level 26 mmol/L (20-31) Anion Gap 10 (5-15) Blood Urea Nitrogen 7 mg/dL (9-23) Creatinine 0.70 mg/dL (0.550-1.02) Glomerular Filtration Rate Calc 98 mL/min (>90) BUN/Creatinine Ratio 10.0 (10.0-20.0) Serum Glucose 103 mg/dL (74-106) Calcium Level 10.0 mg/dL (8.7-10.4) Anisocytosis (manual) Slight Schistocytes Few Prothrombin Time 11.1 sec (9.3-11.8) Prothrombin Time INR 1.05 (0.9-1.15) Activated Partial Thromboplast Time 28.8 SEC (24.5-34.5) Total Bilirubin 1.1 mg/dL (0.2-1.0) Aspartate Amino Transferase (AST) 19 U/L (13-40) Alanine Aminotransferase (ALT) 15 U/L (7-40) Alkaline Phosphatase 89 U/L (46-116) Total Protein 7.6 g/dL (5.7-8.2) Albumin 4.5 g/dL (3.2-4.8) Urine Color Light-yellow (Yellow) Urine Clarity Clear (Clear) Urine pH 6.0 (5.0-9.0) Urine Specific [place] 1.003 (1.001-1.035) Urine Protein Negative (Negative) Urine Ketones Negative (Negative) Urine Blood Negative /uL (Negative) Urine Nitrite Negative (Negative) Urine Bilirubin Negative (Negative) Urine Urobilinogen Normal mg/dL (Negative) Urine Leukocyte Esterase Negative /uL (Negative) Urine RBC <1 /hpf (0 - 4) Urine WBC 1 /hpf (0 - 5) Urine Squamous Epithelial Cells Few /hpf (<5) Urine Bacteria None seen /hpf (None Seen) Urine Glucose Normal mg/dL (Normal) Other Laboratory Tests 11/03/24 06:02 Brief Hx & Hospital Course: see dictated note Condition at Discharge: Fair Final Diagnosis/Problems List left wrist fracture Discharge Disposition: Home Discharge Instruct/Medications Diet: Cardiac 2g Na,low cholest Activity: No Restrictions, As Tolerated Follow Up/Referral: fu with pcp/ortho Medications: script to pharmacy Discharge Statement: "Patient was advised to return to the ER or call 911 if any headaches, dizziness, shortness of breath, chest pain, abdominal pain, bleeding, fevers, or worsening of medical condition. Patient was counseled about treatment plan, medications, possible side effects, patientverbalized understanding. All questions were answered to the best of my ability. This discharge took greater then 30 minutes in planning, reviewing documentation, counseling the patient, and discussing with other team members." ASSESSMENT ASSESSMENT Assessment left wrist fracture Date of Service: Nov 03, 2024 Billing Provider: JULIO RUSSO MD Common Visit Codes: [id number]/OBS DISCH DAY >30min JULIO RUSSO MD Nov 03, 2024 15:10
--- NOTE | 2024-11-03 15:41 | DVHDS ---
DATE OF DISCHARGE: 11/03/2024 HISTORY OF PRESENT ILLNESS: The patient is a 59-year-old lady who was admitted after she had a fall and subsequent wrist fracture. The patient has a previous history of possible hypertension. HOSPITAL COURSE: The patient underwent surgery by Dr. King on 11/02/2024. Post-surgery, the patient was noted to have elevated blood pressure of 190s to 170s. The patient at this time will be discharged home. She does not wish to have antihypertensive medications. We will monitor blood pressure at home. The patient will be discharged on [place] p.r.n. for pain. She will follow up with the primary and orthopedic in the next 1-2 weeks. FINAL DIAGNOSES: Therefore, * Left wrist fracture, status post surgery. * Hypertension with questionable urgency for which the patient will monitor. Time spent in discharge planning and review of plan with the patient and nursing was 38 minutes. MD LINDA Acevedo/DIANDRA TID: [id number] RECEIPT: [id number]
[2024-11-03 16:08] VITALS: BP 142/84; PULSE 86; RESP 16; TEMP 98; O2SAT 98
--- NOTE | 2024-11-16 13:28 | ECG ---
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
--- NOTE | 2024-11-16 13:28 | ECG ---
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
== END 2024-11-03 16:35 | disposition home or self-care (01) | DRG 512 ==
LOC: ER 10:25 → OVERFLOW 14:59 → WEST WING 11-02 13:46
PROVIDERS: ADMIT Hospitalist; ATTEND Internal Medicine
PROC: 0PSJ04Z Reposition Left Radius with Internal Fixation Device, Open Approach (ICD-10-PCS; principal; 2024-11-02 08:38)
DX: S52.502A Unspecified fracture of the lower end of left radius, initial encounter for closed fracture (principal); I10 Essential (primary) hypertension; W18.39XA Other fall on same level, initial encounter; Z88.1 Allergy status to other antibiotic agents; Z79.891 Long term (current) use of opiate analgesic; Z79.899 Other long term (current) drug therapy; Y93.89 Activity, other specified; Y92.89 Other specified places as the place of occurrence of the external cause; Y99.8 Other external cause status
CPT/HCPCS: 36415; 71045; 73100; 76000; 80048; 80053; 81001; 85025; 85610; 85730; 96360; G0378; J1100; J2250; J2405; J2704